=== PATIENT | male | born 1960 | race Caucasian/White ===

== ENCOUNTER 2017-12-15 10:01 | Outpatient (CLI) | payer BC ==
--- NOTE | 2017-12-15 12:50 | RAD ---
BARIUM SWALLOW ESOPHAGRAM: HISTORY: Dysphagia. R13.10. COMPARISON: None. TECHNIQUE/FINDINGS: Dope Pourer imaging of the chest is normal. The patient was brought to the fluoroscopy suite. All questio ns were answered. The patient was initially given gas-forming crystals. Subsequently, thick liquid barium was administ ered. Primary and secondary peristalsis was normal. No stricture or extensive mass effect. No muco niurka irregularity. Next, a barium tablet was given which passed with ease. Next, the patient was put in the LOU position and given thin liquid barium to continuously swallow. Primary and secondary peristalsis was again normal. No hernia. No significant reflux. IMPRESSION: Normal examination. FLUORO TIME: 1.2 minutes. DOSE: 9.463 uGy*^cm2. POS: [facility]
== END 2017-12-15 10:02 | disposition home or self-care (01) ==
LOC: RAD 10:01
PROVIDERS: ATTEND Family Medicine
DX: R13.10 Dysphagia, unspecified (principal)
CPT/HCPCS: 74220

== ENCOUNTER 2018-01-12 12:23 | Outpatient (CLI) | payer BC ==
[2018-01-12] MEDS ORDERED: ISOVUE-370 76%-LOCM 1 ML ONE (12:33)
--- NOTE | 2018-01-12 15:36 | CT ---
CT ABDOMEN AND PELVIS WITH AND WITHOUT CONTRAST: HISTORY: Microscopic hematuria. COMPARISON: None. FINDINGS: The lung bases are clear. No pericardial effusion. On the noncontrast portion of the examination, there is a 3 x 3 mm calculus, interpolar right kidney. The left renal collecting system is without calculus. The urinary bladder is without calculus. No hydronephrosis. No hydroureter. Dls-tegni-uc-fully-characterize hypodensity, posterior cortex, i nterpolar, left kidney, although measures fluid attenuation suggesting a cyst. Suture material in the sigmoid colon. There also appears to be some suture of the ileum. On the delayed phase of contrast, the renal calices are sharp. The renal pelves are patent. No fill ing defects within the ureters. No papillary mass within the urinary bladder. There is a focal indentation of the posterior midline bladder wall, likely normal in this patient, that does not appear mass-like. No acute osseous abnormality. No suspicious lytic or blastic lesions. IMPRESSION: 1. Likely normal variant posterior indentation of the bladder wall, [id number], likely a focal fo ld. No abnormal enhancing mass within the urinary bladder, kidneys, or urothelium. 2. Nonobstructing 3 x 3 mm calculus, interpolar right kidney. 3. Uncomplicated postoperative changes of the colon and small bowel. POS: [facility]
== END 2018-01-12 12:24 | disposition home or self-care (01) ==
LOC: BICCT 12:23
PROVIDERS: ATTEND Urology
DX: R31.29 Other microscopic hematuria (principal); N20.0 Calculus of kidney; Z98.890 Other specified postprocedural states
CPT/HCPCS: 74178

== ENCOUNTER 2021-12-05 07:28 | Outpatient (CLI) | payer BC | END 2021-12-05 07:29 | disposition home or self-care (01) | LOC: BICCT 07:28 | PROVIDERS: ATTEND Family Medicine | DX: Z12.2 Encounter for screening for malignant neoplasm of respiratory organs (principal); Z87.891 Personal history of nicotine dependence | CPT/HCPCS: 71271 ==

== ENCOUNTER 2022-12-11 08:00 | Outpatient (CLI) | payer BC | END 2022-12-11 08:01 | disposition home or self-care (01) | LOC: BICCT 08:00 | PROVIDERS: ATTEND Family Medicine | DX: Z12.2 Encounter for screening for malignant neoplasm of respiratory organs (principal); Z87.891 Personal history of nicotine dependence; J98.4 Other disorders of lung | CPT/HCPCS: 71271 ==